=== PATIENT | male | born 1980 | race Caucasian/White ===

== ENCOUNTER 2023-02-22 18:39 | Emergency (ER) | payer MEDICAID, SELFPAY ==
[2023-02-22 19:07] VITALS: BP 129/80; PULSE 90; RESP 16; TEMP 36.5; O2SAT 98; BMI 17.6
--- NOTE | 2023-02-22 19:37 | ED_ITS ---
HPI - General Adult 2 General: Chief complaint: Dizziness Stated complaint: thrush Time Seen by Provider: 02/22/23 18:54 Source: patient Mode of arrival: ambulatory Limitations: no limitations History of Present Illness: Patient is a 43-year-old male who presents to ED today with complaint of possible dehydration related to thrush. Patient states he developed thrush approximately 2 months ago. He states he has been seeing Dr. Romero as well as his primary care provider for this. He was initially placed on nystatin without any improvement. He was then placed on 100 mg fluconazole daily for 10 days. He states he did not respond to that therapy so they increased to this and he is now on 200 mg daily. He is starting to note some improvement. Patient states he is not immunocompromised. He states he has been tested for HIV through his primary care or Dr. Romero's office during work up for all of this. He reports a 60 pound weight loss. Feels like thrush developed after he used some illegal vape cartridges. Patient states he has had an EGD, CT scan of his neck, and barium swallow test by Dr. Romero. He apparently has an MRI of the neck scheduled as well. Onset (ago): week(s) Location: mouth Severity: moderate Pain Consistency: constant Associated symptoms: Deny chest pain, dyspnea, headache(s), nausea, rash or vomiting Treatments prior to arrival: other (oral antifungal) Review of Systems 2 Const: Reports: change in appetite and change in weight; Denies: fever(s), chills or body aches Eyes: Denies: change in vision, blurry vision, photophobia, floaters or seeing flashes ENMT: Reports: throat pain, odynophagia, mouth pain and oral sores; Denies: uvular edema, enlarged tonsils, hoarseness, swelling of lips/tongue, bleeding gums, ear or mastoid pain, ear discharge, change in hearing, nasal discharge, nasal congestion, epistaxis, post nasal drip or sinus pain Card: Denies: chest pain Resp: Denies: dyspnea GI: Denies: abdominal pain, nausea, vomiting or diarrhea Musc: Denies: neck pain, back pain, extremity pain or joint pain Skin/Breast: Denies: rash Neuro: Reports: dizziness; Denies: headache(s), numbness in extremities, weakness in extremities or sensory changes Physical Exam 2 Const: COMMON NORMALS: no acute distress, patient oriented x3 and alert G ENERAL APPEARANCE: cooperative NUTRITIONAL APPEARANCE: thin O RIENTATION/CONSCIOUSNESS: Yes awake, Yes oriented to person, Yes oriented to place and Yes oriented to time HENMT: COMMON NORMALS: normocephalic, atraumatic, external ears normal, EAC's normal, TM's normal bilaterally and Normal external nose present HEAD & SCALP: normal to inspection, normocephalic and atraumatic FACE & SINUS: n ormal facial exam NOSE: Normal external nose present EXTERNAL EAR: Yes external ears normal EXTERNAL AUDITORY CANAL: EAC's normal TYMPANIC MEMBRANE: TM's normal bilaterally MOUTH: lip normal, Normal salivary glands and ducts present and tongue abnormal TEETH & GINGIVA: Yes poor dentition THROAT: posterior oropharynx normal and tonsils normal; no uvular edema OTHER: oral pharyngeal candidiasis noted to the tongue and hard palate Eye: GENERAL EYE: appearance normal, both eyes and all related structures Neck/C-Spine: COMMON NORMALS: full ROM, no lymphadenopathy, no meningeal signs and Thyroid normal GENERAL: Yes normal visual inspection THYROID: Thyroid normal CERVICAL SPINE: Yes cervical ROM normal Resp: COMMON NORMALS: normal respiratory effort and clear to auscultation bilaterally AUSCULTATION: clear to auscultation bilaterally Cardio: COMMON NORMALS: regular rate and regular rhythm RATE: regular rate RHYTHM: regular rhythm Extremity: COMMON NORMALS: normal to inspection GENERAL: Yes normal exam except as noted Neuro: YOLANDA COMA SCALE: document GCS findings [place] coma scale eye opening: Spontaneous Yolanda coma scale verbal response: Orientated [place] coma scale motor response: Obey commands [place] coma scale total score: 15 COMMON NORMALS: patient oriented x3, CN's II-XII intact bilaterally, moves all extremities, no focal motor deficits, no sensory deficits noted and gait normal SENSORIUM/ORIENTATION: Yes alert, Yes oriented to person, Yes oriented to place and Yes oriented to time MENINGEAL SIGNS: Yes no meningeal signs Course 2 Vital Signs: Vital signs: Vital Signs Temperature 97.7 F 02/22/23 19:07 Pulse Rate 90 02/22/23 19:07 Respiratory Rate 16 02/22/23 19:07 Blood Pressure 129/80 02/22/23 19:07 Pulse Oximetry 98 02/22/23 19:07 [facility] - General Adult Medical Decision Making Patient here with refractory thrush. He is actively under the care of Dr. Romero as well as his PCP. He is currently had his dose of fluconazole increased and is now on 200mg daily. He does feel like this is slowly starting to help. Recommend he can continue to follow-up with his current specialists. As stated in the HPI patient is already underwent CT imaging of the neck, barium swallow, EGD, and has MRI approved through insurance and just waiting on scheduling. At this time I do not think there is anything further that needs to be done from an emergency standpoint. His vital signs are stable. Blood work is unremarkable. He was given a liter of fluids here. Return to ED precautions given. Lab Data 02/22/23 20:04 02/22/23 20:04 Laboratory Results WBC 8.70 10^3/uL (3.29-11.43) 02/22/23 20:04 RBC 4.63 10^6/uL (3.85-5.65) 02/22/23 20:04 Hgb 12.70 g/dL (11.27-16.99) 02/22/23 20:04 Hct 37.7 % (37-53) 02/22/23 20:04 MCV 81.4 fl (82-101) L 02/22/23 20:04 MCH 27.4 pg (27-33) 02/22/23 20:04 MCHC 33.7 g/dL (30-55) 02/22/23 20:04 RDW 12.5 % (12.1-15.1) 02/22/23 20:04 Plt Count 349 10^3/cmm (157-399) 02/22/23 20:04 MPV 10.6 fL (7.4-10.4) H 02/22/23 20:04 Neut % (Auto) 73.0 % 02/22/23 20:04 Lymph % (Auto) 19.2 % 02/22/23 20:04 [place] % (Auto) 7.0 % 02/22/23 20:04 Eos % (Auto) 0.3 % 02/22/23 20:04 Baso % (Auto) 0.2 % 02/22/23 20:04 Neut # (Auto) 6.34 10^3/uL (1.8-7.7) 02/22/23 20:04 Lymph # (Auto) 1.7 10^3/uL (0.8-4.8) 02/22/23 20:04 [place] # (Auto) 0.6 10^3/uL (0.2-0.9) 02/22/23 20:04 Eos # (Auto) 0.0 10^3/uL (0.0-0.8) 02/22/23 20:04 Baso # (Auto) 0.0 10^3/uL (0.0-0.1) 02/22/23 20:04 Nucleated RBC % (auto) 0 % 02/22/23 20:04 Nucleated RBCs # 0.0 /100WBC 02/22/23 20:04 Sodium 135 mmol/L (136-145) L 02/22/23 20:04 Potassium 4.1 mmol/L (3.5-5.1) 02/22/23 20:04 Chloride 97 mmol/L (98-107) L 02/22/23 20:04 Carbon Dioxide 28 mmol/L (22-29) 02/22/23 20:04 Anion Gap 14.1 (5-19) 02/22/23 20:04 BUN 16 mg/dL (6-20) 02/22/23 20:04 Creatinine 0.5 mg/dL (0.7-1.2) L 02/22/23 20:04 GFR Calculation 182.3 mL/min (90-130) H 02/22/23 20:04 Glucose 99 mg/dL (65-115) 02/22/23 20:04 Calculated Osmolality 281 mOsm/kg (285-295) L 02/22/23 20:04 Calcium 10.1 mg/dL (8.5-10.5) 02/22/23 20:04 Total Bilirubin 0.3 mg/dL (0.15-1.2) 02/22/23 20:04 AST 13 U/L (0-40) 02/22/23 20:04 ALT 12 U/L (0-41) 02/22/23 20:04 Alkaline Phosphatase 118 U/L (40-130) 02/22/23 20:04 Total Protein 8.1 g/dL (6.6-8.7) 02/22/23 20:04 Albumin 4.3 g/dL (3.5-5.2) 02/22/23 20:04 Globulin 3.8 g/dL (1.3-4.6) 02/22/23 20:04 No radiology studies performed this visit Discharge Plan Discharge Patient Disposition: Home Clinical Impression: Oral thrush Condition: Stable Discharge Orders: Discharge ED (Routine); Ordered 02/22/23 Ordered By: Morena Castro Activity Restrictions/Additional Instructions: As we discussed continue your current dose of fluconazole. Please follow-up with Dr. Romero and your primary care provider Dr. Tucker as scheduled for further evaluation. Coding Level of Care Code ED [employer] Tech for Mart Juarez
[2023-02-22 20:29] LABS: Basophils % 0.2 %; Eosinophils % 0.3 %; Hematocrit 37.7 % (37-53); Lymphocytes # 1.7 10^3/uL (0.8-4.8); Lymphocytes % 19.2 %; Mean Corpuscular HGB Conc 33.7 g/dL (30-55); Mean Corpuscular Hemoglobin 27.4 pg (27-33); Mean Corpuscular Volume 81.4 fl (82-101); Mean Platelet Volume 10.6 fL (7.4-10.4); Monocytes # 0.6 10^3/uL (0.2-0.9); Neutrophils # 6.34 10^3/uL (1.8-7.7); Nucleated Red Blood Cells % 0 %; Platelet Count 349 10^3/cmm (157-399); Red Blood Count 4.63 10^6/uL (3.85-5.65); Red Cell Distribution Width 12.5 % (12.1-15.1)
[2023-02-22 20:45] LABS: Alanine Aminotransferase 12 U/L (0-41); Albumin Level 4.3 g/dL (3.5-5.2); Alkaline Phosphatase 118 U/L (40-130); Anion Gap 14.1 (5-19); Aspartate Amino Transferase 13 U/L (0-40); Blood Urea Nitrogen 16 mg/dL (6-20); Calcium 10.1 mg/dL (8.5-10.5); Carbon Dioxide 28 mmol/L (22-29); Chloride 97 mmol/L (98-107); Globulin 3.8 g/dL (1.3-4.6); Glomerular Filtration Rate 182.3 mL/min (90-130); Glucose 99 mg/dL (65-115); Osmolality Calculated 281 mOsm/kg (285-295); Potassium 4.1 mmol/L (3.5-5.1); Sodium 135 mmol/L (136-145); Total Bilirubin 0.3 mg/dL (0.15-1.2); Total Protein 8.1 g/dL (6.6-8.7)
[2023-02-22] MEDS: sodium chloride 0.9% 1,000 ML 999 ML IV (21:16)
[2023-02-22 22:25] VITALS: BP 122/69; PULSE 90; RESP 16; O2SAT 98
== END 2023-02-22 22:26 | disposition home or self-care (01) ==
PROVIDERS: Emergency Provider Physician Assistant
DX: B37.0 Candidal stomatitis (principal)
CPT/HCPCS: 36415; 80053; 85025; 96360; 99284; J7030

== ENCOUNTER 2023-04-07 15:02 | Outpatient (CLI) | payer MEDICAID, SELFPAY ==
--- NOTE | 2023-04-07 15:05 | CTR_ITS ---
PROCEDURE INFORMATION: Exam: CT Chest With Contrast; Diagnostic Exam date and time: 04/07/2023 3:50 PM Age: 43 years old Clinical indication: Condition or disease; Other: Cancer of tongue; Additional info: Cancer of tongue, per jagdeep/1534/ct chest with/lilrh TECHNIQUE: Imaging protocol: Diagnostic computed tomography of the chest with contrast. Radiation optimization: All CT scans at this facility use at least one of these dose optimization techniques: automated exposure control; mA and/or kV adjustment per patient size (includes targeted exams where dose is matched to clinical indication); or iterative reconstruction. Contrast material: OMNI 350; Contrast volume: 75 ml; Contrast route: INTRAVENOUS (IV); COMPARISON: MRI Neck/Face/Orbit w/wo [id number] 02/24/2023 7:47 AM RADIATION DOSE METRICS: Total DLP (mGy-cm): 151.57 FINDINGS: Lungs: Unremarkable. No consolidation. No masses. Pleural spaces: Unremarkable. No pneumothorax. No pleural effusion. Heart: Unremarkable. No cardiomegaly. No pericardial effusion. Lymph nodes: Unremarkable. No enlarged lymph nodes. Vasculature: Unremarkable. No aortic aneurysm. Bones/joints: Unremarkable. No acute fracture. Soft tissues: Unremarkable. CT/CT chest w con* [id number] IMPRESSION: There is no evidence of active neoplastic disease.
--- NOTE | 2023-04-07 15:30 | CTR_ITS ---
PROCEDURE INFORMATION: Exam: CT Neck With Contrast Exam date and time: 04/07/2023 3:55 PM Age: 43 years old Clinical indication: Condition or disease; Other: Cancer of tongue TECHNIQUE: Imaging protocol: Computed tomography of the neck with contrast. Radiation optimization: All CT scans at this facility use at least one of these dose optimization techniques: automated exposure control; mA and/or kV adjustment per patient size (includes targeted exams where dose is matched to clinical indication); or iterative reconstruction. Contrast material: OMNI 350; Contrast volume: 75 ml; Contrast route: INTRAVENOUS (IV); COMPARISON: MRI Neck/Face/Orbit w/wo [id number] 02/24/2023 7:47 AM RADIATION DOSE METRICS: Total DLP (mGy-cm): 245.54 FINDINGS: Pharynx: See Larynx finding. Larynx: Redemonstrated the large heterogeneously enhancing mass involving the tongue base and supra glottic larynx measuring 5.1 x 4.4 x 6.3 cm. The mass is involving the base of the tongue, vallecula, supraglottic larynx and is inseparable from the epiglottis. Prevertebral and retropharyngeal spaces: Unremarkable. Salivary glands: Normal. Glands are normal in size. Thyroid: There is a 7 mm hypodense nodule in the posterior aspect of the left thyroid lobe. Lymph nodes: Redemonstrated the pathologically enlarged left level 2A lymph nodes measuring 3.4 x 2.1 cm and left level 3 lymph node measuring 2 x 1.3 cm the remaining cervical lymph nodes are subcentimeter. Trachea: Visualized trachea is unremarkable. Lungs: Unremarkable as visualized. Bones/joints: The mass is extending to the level of the anterior aspect of the thyroid cartilage which is involved by the mass. The mass is eroding the hyoid bone. There is mild degenerative disease at C4-C5 with tiny anterior osteophytes. No suspicious osseous lesion. Soft tissues: Unremarkable. No significant soft tissue swelling. 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 COMMENTS: Consistent with the [employer]'s Incidental Findings Committee white paper (J Am Humberto Radiol 2015): In patients aged 35 years and older with an incidental thyroid nodule equal to or greater than 1.[address], MRI or extrathyroidal US, further evaluation with dedicated thyroid US is recommended for patients with normal life expectancy and without comorbidities. For smaller nodules without suspicious features, no further evaluation or follow up is recommended.
[2023-04-07] MEDS: iohexol 350 mg/mL 500 mL Btl (per mL) IV ×2 (16:02→16:03)
== END 2023-04-07 15:03 | disposition home or self-care (01) ==
LOC: RAD 15:03
PROVIDERS: Visit Provider Radiology Radiation Oncology
DX: C01 Malignant neoplasm of base of tongue (principal)
CPT/HCPCS: 70491; 71260; Q9967

== ENCOUNTER 2023-04-22 11:13 | Day surgery (SDC) | payer MEDICAID, SELFPAY ==
[2023-04-22] VITALS (12 sets, daily range): BP systolic 131–162; BP diastolic 91–107; PULSE 96–144; RESP 12–20; TEMP 36.3–37.1; O2SAT 97–100; BMI 20.3
[2023-04-22] MEDS: sodium chloride 0.9% 1,000 ML 30 ML IV (12:04)
--- NOTE | 2023-04-22 12:11 | W.PM.OPSUD ---
Surgery/Procedure H&P Update DATE OF PROCEDURE: April 22, 2023 DATE H&P PERFORMED: 04/11/23 H&P UPDATE INFORMATION: I have reviewed H&P completed within last 30 days, I have examined patient prior to procedure and No changes to prior documentation PLANNED PROCEDURE: Operation Date: 04/22/23 13:00 Proposed Procedures p 16824 port placement and [id number] peg tube insertion C01(Not Applicable) - Kamaljit Fuller DO s PEG Tube Insertion(Not Applicable) - Kamaljit Fuller DO
--- NOTE | 2023-04-22 12:27 | PC.NURSE ---
Fentanyl patch from home to L upper arm in preop.
[2023-04-22] MEDS: lidocaine 4% PF 5 mL INJ INHALATION (12:40)
[2023-04-22] MEDS: glycopyrrolate 0.2 mg/mL SDV 2 mL 0.200000000000000011 MG IV (12:46)
--- NOTE | 2023-04-22 12:51 | PC.NURSE ---
Robinol 0.[address] York in preop
--- NOTE | 2023-04-22 12:58 | PC.NURSE ---
Heartrate 147 after med, Dr York at bedside. Denies SOB or dizziness. VSS. Ordered viscous lido for continue numbing process. No new orders for heart rate at this time.
[2023-04-22] MEDS: lidocaine 2% viscous 15 mL UDC 20 ML MUCOUS MEM (13:04)
--- NOTE | 2023-04-22 13:18 | SC_ITS ---
WS: [id number] C-ARM RADIOGRAPHS CHEST; 2 IMAGES HISTORY: port placement COMPARISON: None available. Intraoperative image guidance during LEFT subclavian Mediport placement. Tip appears at the mid SVC. IMPRESSION: Intra operative guidance during LEFT Mediport placement.
[2023-04-22] MEDS: ceFAZolin 2,000 MG in sodium chloride 0.9% (plus) 50 ML 100 MG IV (13:27)
--- NOTE | 2023-04-22 13:50 | P.ANESASSM_ITS ---
Pre-Anesthetic Assessment Height/Weight: Height 1.83 m Weight 68.039 kg Temp Pulse Resp BP Pulse Ox O2 Del Method 98.1 F 144 H 14 131/104 99 Room Air 04/22/23 11:51 04/22/23 12:55 04/22/23 12:55 04/22/23 11:51 04/22/23 12:55 04/22/23 12:55 Operation Date: 04/22/23 13:00 Proposed Procedures p 08592 port placement and [id number] peg tube insertion C01(Not Applicable) - Kamaljit Fuller DO s PEG Tube Insertion(Not Applicable) - Kamaljit Fuller DO Familial anesthetic complications: None Was Beta Itzel taken within 24 hours: N/A Was Clonidine taken within 24 hours: N/A Last intake: Intake Last Liquid Date 04/21/23 Last Liquid Time 21:00 Last Solid Date 04/21/23 Last Solid Time 21:00 Social No alcohol and No tobacco Former smokre Exam alert, oriented x 3, clear to auscultation bilaterally and regular rate & rhythm tachy Airway Submandibular: Other (grossly and visibly enlarged, firm, immoblie) Mallampati: Class IV (large tongue adherent to base, patient unable to stick out tongue. Very dry tongue covered in white protein/saliva exudate. Speech affected) Dentition: full Comments: Comments: Neck CT FINDINGS: Pharynx: See Larynx finding. Larynx: Redemonstrated the large heterogeneously enhancing mass involving the tongue base and supra glottic larynx measuring 5.1 x 4.4 x 6.3 cm. The mass is involving the base of the tongue, vallecula, supraglottic larynx and is inseparable from the epiglottis. Prevertebral and retropharyngeal spaces: Unremarkable. Salivary glands: Normal. Glands are normal in size. Thyroid: There is a 7 mm hypodense nodule in the posterior aspect of the left thyroid lobe. Lymph nodes: Redemonstrated the pathologically enlarged left level 2A lymph nodes measuring 3.4 x 2.1 cm and left level 3 lymph node measuring 2 x 1.3 cm the remaining cervical lymph nodes are subcentimeter. Trachea: Visualized trachea is unremarkable. Lungs: Unremarkable as visualized. Bones/joints: The mass is extending to the level of the anterior aspect of the thyroid cartilage which is involved by the mass. The mass is eroding the hyoid bone. There is mild degenerative disease at C4-C5 with tiny anterior osteophytes. No suspicious osseous lesion. Soft tissues: Unremarkable. No significant soft tissue swelling. Discussed case with Dr. Chuy MD ENT surgeon. Feels patient won't be difficult to intubate with glidescope . CT is a few weeks old so additional expansion possible and concern for tumor friability/swelling during endoscopic airway manipulation for PEG tube. Thus decision to proceed with awake fiberoptic intubation. Preop preparation; Glycopyrrolate 0.4 mg IV for airway secretions (expected increased tachycardia resulted) 4% inhaled lidocaine at 4-5 L/min for 10 min and viscous lidocaine swish and gargle performed. Cetacaine spray used in OR Anesthetic Plan ASA status: 4 Anesthesia: General Risk of > 500 ml blood loss (7ml/kg in children): No Other Pertinent Information Discussed with patient risk of apnea with administration of anesthetic drugs and risk of airway compromise with endoscopic manipulation of airway Discussed plan for Fiberoptic intubation, plan to numb up airway and place tube while awake and then proceed with induction of anesthesia after securing airway safely Medications/Allergies Home Medications Medication Instructions Recorded Confirmed Last Taken Type advil/aleve 2 tab PO 3XD PRN Pain (Scale Score 04/06/23 04/22/23 04/21/23 History 1-3) alprazolam 1 mg tablet (Xanax) 1 mg PO TID PRN anxity 04/06/23 04/22/23 04/21/23 History fentanyl 25 mcg/hr transdermal 1 patch transdermal Q72H 30 days 04/20/23 0 04/22/23 04/22/23 Rx patch #10 ea lorazepam 1 mg tablet 0.5 - 1 mg (0.5 - 1 x 1 mg) PO Q6H 04/20/23 04/22/23 Unknown Rx PRN Severe Nausea #30 tabs oxycodone 15 mg tablet 15 mg PO Q6H PRN pain 30 days #120 04/20/23 04/22/23 04/22/23 Rx tabs prochlorperazine maleate 10 mg 10 mg PO Q4H PRN Mild Nausea #30 04/20/23 04/22/23 1 Day Ago Rx tablet (Compazine) tabs ~04/20/23 Allergies Allergy/AdvReac Type Severity Reaction Status Date / Time No Known Allergies Allergy Verified 04/22/23 11:45 Current Medications Generic Name Dose Route Start Last Admin Trade Name Freq PRN Reason Stop Dose Admin Sodium Chloride 1,000 mls @ 30 mls/hr 04/22/23 11:30 04/22/23 12:04 Sodium Chloride 0.9% IV 04/23/23 11:29 30 mls/hr .Q24H MIGUELANGEL Administration Lidocaine HCl 20 ml 04/22/23 12:12 04/22/23 13:04 Lidocaine 2% Viscous 15 Ml Udc MUCOUS MEM 5 ml PRN PRN Administration ODYNOPHAG PFSH Anesthesia Medical History Squamous cell carcinoma of base of tongue Anxiety and depression Surgical History History of lymph node biopsy (03/04/23) FNA biopsy of left jugulodigastric lymph node History of laryngoscopy (03/16/23) [facility] laryngoscopy with biopsy of tongue mass and flexible esophagoscopy Social History Smoking and tobacco/nicotine status: current every day tobacco/nicotine user cigarettes Packs smoked per day: 1 Years cigarettes smoked: 22 Alcohol intake: former Data Anesthesia Cardiac Studies: No Data to Display
[2023-04-22] MEDS: lidocaine-epi 2% PF 1:200,000 20 mL SDV 10 ML XX (14:01)
[2023-04-22] MEDS: heparin, porcine 1,000 unit/mL INJ 10 mL 10000 UNIT IRRIGATION (14:02)
--- NOTE | 2023-04-22 14:25 | XR_ITS ---
WS: [id number] Examination: XR chest 1V portable [id number] Reason for Exam: Postop Mediport Date: 04/22/2023 Comparison: None. Findings: The cardiomediastinal silhouette is within normal limits There is a left-sided Port-A-Cath. There is no effusion or consolidation. Impression: No acute lung process is identified.
--- NOTE | 2023-04-22 14:32 | P.OP_ITS ---
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 He is having problems with dysphagia. Mediport placement was requested by oncology for chemotherapy access. Percutaneous endoscopic gastrostomy tube placement was requested for feeding secondary to his dysphagia related to the obstruction. The risk and benefits were explained and documented. Procedure: They put another order I will do right now things the patient was taken to the operating room and placed supine on the operating room table. All bony prominences were padded. She was given IV sedation and monitored throughout the case by the anesthesia personnel. SCDs were placed and turned on. The arms were tucked to the side. Patient received Ancef 2 g preoperatively IV. The bilateral chest wall was prepped and draped in usual sterile fashion using chlorhexidine base prep. Sterile drapes were applied. We did procedure pause prior to beginning. An 18 gauge needle was placed in the left subclavian vein. Dark, nonpulsatile blood was aspirated. A guidewire was placed through the needle centrally toward the atrial/vena caval junction. Fluoroscopy visualized good placement. The needle was removed and the guidewire was clipped to the drape with a hemostat. Further local anesthetic was infiltrated in the soft tissues of the left chest wall and a #15 blade was used to make a horizontal skin incision. A subcutaneous Mediport pocket was created using Bovie cautery, dissecting down through the skin and subcutaneous tissues. Meticulous hemostasis was achieved. The Mediport was sutured in position using 3-0 vicryl suture x2 stitches. A #15 blade was used to make a small skin james around the guidewire insertion area. The Mediport tubing was tunneled through the subcutaneous tissues up to the needle insertion location. A dilator with a peel-away sheath was placed over the guidewire and placed centrally. After measuring the Mediport tubing was cut to length so that the tip would end at the atrial/vena caval junction. The inner cannula and the guidewire were removed, leaving the dilator sheath in place. The Mediport was flushed. The tip of the catheter was inserted through the peel-away sheath and the peel-away sheath removed in the standard fashion. The Mediport was accessed with a straight Oscar needle and dark, nonpulsatile blood was aspirated and flushed using heparinized saline to hep-lock the Mediport. Final fluoroscopy visualization showed no kink in the catheter and the tip of the Mediport tubing near the atrial/vena caval junction. Both skin incisions were thoroughly irrigated and suctioned dry. Meticulous hemostasis noted. The dermis was approximated with 3-0 Vicryl in an interrupted fashion. Skin was closed with Dermabond. We then transition to the PEG tube. The endoscope was then placed into the patient's mouth and advanced down the esophagus into the stomach. The light from the endoscope was used to transilluminate through the anterior abdominal wall. Once identified the spot was marked. 2% lidocaine with epinephrine was used to anesthetize the skin. A scalpel was used to make a 7 mm transverse incision at the marked site. After fully insufflating the stomach, the introducer needle was then placed through the incision into the stomach. This was done under visualization. The needle was removed leaving the sheath in place. The wire was then placed through the sheath and grasped with a snare through the Endoscope. The wire was then pulled out through the patient's mouth and attached to the PEG tube. The PEG tube was lubed and pulled back through the mouth and out of the anterior abdominal wall. The button was placed and tightened down to 2-1/2 cm. The clamp was placed and the end of the PEG tube was placed after ligating the tube. Patient tolerated procedure well. Patient was awakened from anesthesia and transferred via her cart to the recovery room in stable condition. All needle, sponge, and instrument counts were correct per the operating personnel x2 counts.
--- NOTE | 2023-04-22 15:45 | ANE.PACU2 ---
Inpatient post-anesthesia follow up: Airway intact: Yes Vital signs: Temperature 98.1 F Pulse Rate 98 Respiratory Rate 16 Blood Pressure 149/94 Pulse Oximetry 98 Oxygen Delivery Me thod Room Air Oxygen Flow Rate Fraction of Inspir ed Oxygen Hydration adequate: Yes Nausea and vomiting: No Pain level: 1 Mental status: Baseline
== END 2023-04-22 15:49 | disposition home or self-care (01) ==
PROVIDERS: PCP Family Medicine; Visit Provider Surgery
PROC: (CPT 36561; principal; 2023-04-22 13:00)
PROC: 0DH63UZ Insertion of Feeding Device into Stomach, Percutaneous Approach (ICD-10-PCS; CPT 43246; 2023-04-22 13:00)
DX: C32.9 Malignant neoplasm of larynx, unspecified (principal); F17.210 Nicotine dependence, cigarettes, uncomplicated
CPT/HCPCS: 36561; 43246; 71045; 76000; 77001; 94640; C1788; J0690; J1644; J2250; J2704; J3490; J7030

== ENCOUNTER 2023-04-26 11:38 | Outpatient (CLI) | payer MEDICAID, SELFPAY ==
--- NOTE | 2023-04-26 11:57 | PETR_ITS ---
PROCEDURE INFORMATION: Exam: PET/CT Skull Base to Mid-thigh Exam date and time: 04/26/2023 12:47 PM Age: 43 years old Clinical indication: Condition or disease; Primary cancer: Malignant neoplasm base of tongue; Initial oncological staging assessment LABS AND CLINICAL REPORTS: Glucose: 119 mg/dl Treatment strategy for malignancy (PET staging): Initial Staging (PI) TECHNIQUE: Imaging protocol: Following at least four-hour fasting and following the injection of radiopharmaceutical, low dose CT images were obtained. Then, PET images were obtained. Attenuation corrected images were constructed using the CT scan. Fused images of PET and CT were reviewed. The standardized uptake values (SUV) reported below are maximum values within a region of interest, expressed in gm/ml. Exam includes orbital meatal line to mid-thigh. Radiopharmaceutical: 13.77 mCi F-18 FDG (Fluorodeoxyglucose), IV. Time of imaging post radiopharmaceutical administration: 1 hour Injection site: Left antecubital COMPARISON: CT neck w con* [id number] 04/07/2023 3:55 PM, MRI soft tissue neck 02/24/2023 FINDINGS: Tubes, catheters and devices: A left subclavian central venous port catheter terminates in the SVC. Brain: Visualized brain has normal physiologic uptake. Pharynx: No abnormal uptake. Larynx: A large region of abnormal uptake is identified in a region of abnormal ill-defined masslike soft tissue density extending from the tongue base bilaterally into the supraglottic larynx terminating slightly superior to the hyoid bone in the region of abnormality noted on the comparison examinations, SUV max 11.8 on series 12, image 36 measuring approximately 6.2 x 5.7 cm in the axial plane on series 3, image 39. Lungs, pleura and trachea: No abnormal uptake. A right lower lobe calcified granuloma is present. Heart: Normal physiologic uptake. Mediastinal space: No abnormal uptake. Liver: No abnormal uptake. Gallbladder and bile ducts: No abnormal uptake. Pancreas: No abnormal uptake. Spleen: No abnormal uptake. Calcified granulomas in the spleen are noted. Adrenal glands: No abnormal uptake. Kidneys and ureters: Normal physiologic uptake. Small nonobstructing bilateral renal calculi are present. Stomach and bowel: No abnormal uptake. A percutaneous gastrostomy tube balloon terminates in the lumen of the stomach. Vasculature: No abnormal uptake. Lymph nodes: No abnormal uptake. No lymphadenopathy in the head, neck, chest, abdomen, pelvis, and extremities. Benign-appearing calcified subcarinal and right hilar lymph nodes are present. Two similar in size enlarged left neck lymph nodes are noted on the left with elevated uptake. A left-sided level 2 lymph node measuring approximately 3.0 x 2.1 cm on series 3, image 38 is present, SUV max 7.0. An inferior level 2/superior level 3 lymph node measuring 2.4 x 1.4 cm in diameter on series 3, image 45 is radiotracer avid, SUV max 5.1. No additional radiotracer avid lymph nodes are identified. Bones/joints: No abnormal uptake in the visualized axial and appendicular skeleton. There is mild diffuse vertebral body spondylosis. A mild old appearing superior endplate compression fracture of T7 is noted. Soft tissues: No abnormal uptake in the visualized head, neck, chest, abdomen, pelvis, and extremities. METRICS: Mediastinal blood pool: SUV max 1.9 [facility] [id number] IMPRESSION: 1. Abnormal uptake within a similar in size mass extending from the tongue base inferiorly to the level of the superior aspect of the hyoid bone is noted (SUV max 11.8) consistent with known malignancy. 2. Elevated uptake within two similarly prominent left cervical lymph nodes is noted consistent with metastases. 3. No additional areas of radiotracer avid malignancy. 4. Additional nonurgent findings as detailed above.
== END 2023-04-26 11:39 | disposition home or self-care (01) ==
LOC: RAD 11:38
PROVIDERS: PCP Family Medicine; Visit Provider Specialist
DX: C01 Malignant neoplasm of base of tongue (principal); R93.89 Abnormal findings on diagnostic imaging of other specified body structures
CPT/HCPCS: 78815; A9552

== ENCOUNTER 2023-04-28 07:47 | Oncology outpatient (recurring) (ONCR) | payer MEDICAID, SELFPAY ==
--- NOTE | 2023-04-06 15:17 | N.ONRAD NP_ITS ---
Radiation Oncology New Patient Visit Patient: Amari Salas MR#: [id number] : 1980 Age: 43 Sex: Male Dictated by: Dr. Zoe Woodard Date of Service: 04/06/2023 Referring Physician(s) : Dr. 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 Chief Complaint / History of Present Illness: Patient is a 43-year-old single parent of 2 who has been dealing with symptoms related to a yeast infection and will was thought to be an overall infection for at least 3 to 4 months. He has been seen in the emergency room and has been seen by Dr. Romero recently who performed a biopsy on 03/25/2023 after finding he had bilateral cervical nodes and an exophytic mass at the base of tongue. The biopsy was positive for moderately differentiated squamous cell carcinoma. He currently has a PET scan ordered but not scheduled. He has lost approximately 40 pounds although he is beginning to gain some weight back. He currently takes in 15 cans of Ensure a day. He says he basically cannot swallow at all. His speech is very hindered and would be described as thick. He is here today to discuss combined modality therapy Current Medications: Allergies: NKDA Medical History: No history of collagen vascular disease. No previous radiation therapy. Surgical History: Fracture of the ankle and arm Family History: He lives alone with his 2 children. Social History: He smokes a pack a day. Current Complaints / Review of Systems: . Vital Signs: Performed on 04/06/2023 1:35 PM BMI - 19.937 kg/m2, Height - 72 in, Weight - 147 lbs, Temperature - 97.3 f, Pulse - 94 /min, Respiration - 16 /min, O2 Sat - 99 %, Pain - 7, Fatigue - 0 and BP - 129/ 85 mm(hg). Physical Exam: General: Patient is in no apparent distress. He is alone today. HEENT normocephalic atraumatic. Pupils are equal, sclera clear, extraocular muscles intact. Neck is supple with palpable adenopathy greater on the left than the right. There is all mid cervical chain adenopathy. Examination of his oral cavity does reveal thrush on his tongue. His tongue however appears to be so swollen it cannot move in his mouth. Cardiovascular: Regular rate and rhythm Pulmonary: Respiratory rate is regular nonlabored Abdomen: Patient has lost a tremendous amount of weight. His abdomen is quite flat. He has minimal adipose tissue. Extremities: No clubbing cyanosis or edema noted Skin: Warm and dry Neurological: Alert and orient x 3. Speech is markedly impaired secondary to the involvement of his tongue. Gait is within normal limits Psych: Affect is appropriate for current situation Performance Status: 90 Pathology: Moderately differentiated squamous of carcinoma Lab: Imaging: See HPI Impression: Moderately differentiated squamous cell carcinoma base of tongue workup in progress Plan: I reviewed with Mr. Moreira the standard treatment with combined modality therapy. We discussed the simulation process. We reviewed the daily treatment regiment. We discussed the risks and side effects both acute and long-term. He understands that treatment will be difficult and that he is in the fight of his life. He said he will fight to survive for his children. His PET scan is currently pending. I will order a CT of his neck and chest as well. Will get those done as soon as possible. I will put for a referral for a PEG tube. He understands the PEG tube is not permanent and I encouraged him to continue to swallow as best he can throughout the entire course of his treatment. At this point he had no additional questions or concerns. Will await the results of all his scans and then have him return for simulation. Signed by: 04/06/2023 3:16:41 PM <<Signature on File>> Time spent with patient:45 CPT Code: CPT Code:
[2023-04-28 08:29] LABS: Basophils % 0.4 %; Eosinophils # 0.1 10^3/uL (0.0-0.8); Eosinophils % 0.6 %; Hematocrit 40.5 % (37-53); Lymphocytes # 1.2 10^3/uL (0.8-4.8); Lymphocytes % 11.3 %; Mean Corpuscular HGB Conc 33.8 g/dL (30-55); Mean Corpuscular Hemoglobin 27.8 pg (27-33); Mean Corpuscular Volume 82.2 fl (82-101); Mean Platelet Volume 10.8 fL (7.4-10.4); Monocytes # 0.7 10^3/uL (0.2-0.9); Monocytes % 6.3 %; Neutrophils # 8.62 10^3/uL (1.8-7.7); Nucleated Red Blood Cells % 0 %; Platelet Count 399 10^3/cmm (157-399); Red Blood Count 4.93 10^6/uL (3.85-5.65); White Blood Count 10.63 10^3/uL (3.29-11.43)
[2023-04-28 08:53] LABS: Alanine Aminotransferase 14 U/L (0-41); Albumin Level 4.3 g/dL (3.5-5.2); Alkaline Phosphatase 129 U/L (40-130); Anion Gap 12.3 (5-19); Aspartate Amino Transferase 17 U/L (0-40); Blood Urea Nitrogen 14 mg/dL (6-20); Calcium 10.1 mg/dL (8.5-10.5); Carbon Dioxide 31 mmol/L (22-29); Chloride 97 mmol/L (98-107); Globulin 3.6 g/dL (1.3-4.6); Glomerular Filtration Rate 123.7 mL/min (90-130); Glucose 143 mg/dL (65-115); Osmolality Calculated 285 mOsm/kg (285-295); Potassium 4.3 mmol/L (3.5-5.1); Sodium 136 mmol/L (136-145); Total Bilirubin 0.3 mg/dL (0.15-1.2); Total Protein 7.9 g/dL (6.6-8.7)
[2023-04-28] MEDS: OLANZapine 5 mg TABLET PO (12:19)
[2023-04-28] MEDS: sodium chloride 0.9% 250 ML 75 ML IV (12:19)
[2023-04-28] MEDS: diphenhydrAMINE 50 mg/mL SDV 1mL 25 MG IVP (12:20)
[2023-04-28] MEDS: palonosetron 0.25 mg/5 mL SDV IVP (12:23)
[2023-04-28] MEDS: famotidine 20 mg/2 mL INJ IVP (12:25)
[2023-04-28] MEDS: fosaprepitant 150 MG in sodium chloride 0.9% 150 ML 300 MG IV (12:36)
[2023-04-28] MEDS: CISPLATIN IV (13:26)
[2023-04-28] MEDS: SODIUM CHLORIDE 0.9% IV (13:26)
[2023-04-28] MEDS: potassium chloride 20 MEQ in sodium chloride 0.9% 500 ML 500 MEQ IV (13:27)
[2023-04-28] MEDS: FUROsemide 10 mg/mL SDV 2mL 20 MG IVP (13:28)
[2023-04-28 14:58] VITALS: BP 130/86; PULSE 99; RESP 16; TEMP 530.6; TEMP 987.1; O2SAT 98
[2023-04-28 16:09] VITALS: BMI 17.2
== END 2023-04-28 23:59 | disposition home or self-care (01) ==
PROVIDERS: Visit Provider Internal Medicine Medical Oncology
DX: Z51.0 Encounter for antineoplastic radiation therapy (principal); C01 Malignant neoplasm of base of tongue; F17.210 Nicotine dependence, cigarettes, uncomplicated; R13.10 Dysphagia, unspecified; Z93.1 Gastrostomy status; Z51.11 Encounter for antineoplastic chemotherapy; Z53.9 Procedure and treatment not carried out, unspecified reason
CPT/HCPCS: 77300; 77301; 77334; 77338; 77386; 80053; 85025; 96367; 96368; 96374; 96375; 96413; 99205; J1100; J1200; J1453; J1642; J1940; J2469; J3475; J3480; J3490; J7030; J7040; J7050; J9060

== ENCOUNTER 2023-04-29 09:02 | Oncology outpatient (recurring) (ONCR) | payer MEDICAID, SELFPAY | END 2023-04-30 23:59 | disposition home or self-care (01) | PROVIDERS: PCP Family Medicine; Visit Provider Internal Medicine Medical Oncology | DX: Z51.0 Encounter for antineoplastic radiation therapy (principal); C01 Malignant neoplasm of base of tongue; F17.210 Nicotine dependence, cigarettes, uncomplicated; R13.19 Other dysphagia | CPT/HCPCS: 77014; 77336; 77386 ==